=== PATIENT | male | born 1995 | race African-American/Black ===

== ENCOUNTER 2019-07-27 08:03 | Emergency (ER) | payer MEDICAID ==
[~2019-07-27] VITALS: Ht 182.9 cm; Wt 77.1 kg
--- NOTE | 2019-07-27 08:10 | NUR ---
ED Nurse Note: Patient BIBA RA 58 c/o generalized shaking that started last night. Patient is intermittently shivering. Patient AxO x 4, has flat affect, responds to questions after a short delay and speaks in a low mumble. Patient on the cardiac exercise specialist. No s/s of acute distress. VSS. Dr. Matias at the bedside speaking to patient.
--- NOTE | 2019-07-27 08:10 | NUR ---
Note undone in EDM - 07/27/19 at 0822 by [facility] ED Nurse Note: Patient walked into ED c/o generalized shaking that started last night. Patient is intermittently shivering. Patient AxO x 4, has flat affect, responds to questions after a short delay and speaks in a low mumble. Patient on the burrer marker axle. No s/s of acute distress. VSS. Dr. Matias at the bedside speaking to patient.
[2019-07-27 08:12] VITALS: BP 140/79
[2019-07-27] MEDS ORDERED: LORazepam 1mg tab ORAL ONE (08:15)
--- NOTE | 2019-07-27 08:16 | Emergency Room Report ---
History of Present Illness General Chief Complaint: General Complaint Source: EMS Present Illness HPI 23-year-old male history of schizophrenia, polysubstance abuse presented for feelings of shakiness. She admits to using methamphetamine 2 days ago. States he has been off his psychiatric medications but the past week. He states he normally takes Zyprexa but his dose is unknown. He denies any suicidal or homicidal ideation. No nausea vomiting or shortness of breath. Presented by EMS from the street. Allergies: Coded Allergies: No Known Allergies (Unverified , 07/27/19) Patient History Past Medical History: see triage record Social History: Reports: drug use Reviewed Nursing Documentation: PMH: Agreed; PSxH: Agreed Nursing Documentation-PMH Past Medical History: No Stated History Review of Systems All Other Systems: negative except mentioned in HPI Physical Exam Vital Signs Date Time Temp Pulse Resp B/P (MAP) Pulse Ox O2 Delivery O2 Flow Rate FiO2 07/27/19 07:56 97.3 90 18 180/100 (126) 96 Room Air Sp02 EP Interpretation: reviewed, normal General Appearance: well appearing, no apparent distress, other - Mild tremor noted Head: normocephalic, atraumatic Eyes: bilateral eye PERRL, bilateral eye EOMI ENT: hearing grossly normal, moist mucus membranes Neck: full range of motion, supple Respiratory: lungs clear, normal breath sounds, no rhonchi, no respiratory distress, no retraction, no wheezing Cardiovascular #1: normal peripheral pulses, regular rate, rhythm, no murmur Gastrointestinal: non tender, soft, non-distended, no guarding Neurologic: alert, oriented x3, no focal defects Psychiatric: no suicidal/homicidal ideation, no delusions, anxious Skin: normal color, warm/dry Medical Decision Making ER Course Differential diagnosis included but not limited to substance abuse, anxiety reaction, methamphetamine abuse to name a few. On exam patient in no acute distress mildly tremulous. Admitted using methamphetamine 2 days ago. I suspect this is the cause of his anxiety and mild tremor. 1 mg of Ativan given p.o. in the ER. After 1 mg of Ativan patient improved, tremor resolved, feeling improved. I will provide prescription for patient to restart his oral Zyprexa.,. Last Vital Signs Date Time Temp Pulse Resp B/P (MAP) Pulse Ox O2 Delivery O2 Flow Rate FiO2 07/27/19 07:56 97.3 90 18 180/100 (126) 96 Room Air Status: improved Disposition: HOME, SELF-CARE Condition: Stable Scripts Olanzapine (Zyprexa Zydis) 10 Mg Tab.rapdis 10 MG ORAL DAILY, #30 TAB 0 Refills Prov: Pedro Matias M.D. 07/27/19 Additional Instructions: Patient is instructed to follow-up with her primary care doctor, primary care clinic or [facility] in 1 to 2 days. Patient instructed to return for any worsening symptoms or concerns. Please note that the documentation in this note was used with [employer] technology. Pleae be advised that this may lead to erroneous text due to misinterpretation by the dictation software Pedro Matias M.D. Jul 27, 2019 08:16
[2019-07-27] MEDS ORDERED: ZYPREXA ZYDIS10 MG ORAL (09:03)
--- NOTE | 2019-07-27 09:05 | NUR ---
ED Nurse Note: Patient tolerating medication well, patient is resting in bed and shaking subsided.
--- NOTE | 2019-07-27 09:10 | NUR ---
ED Nurse Note: Patient drowsy when talking. Per Dr. Matias, okay to let patient stay in bed to monitor.
--- NOTE | 2019-07-27 10:56 | NUR ---
ED Nurse Note: Patient awake and alert, patient able to walk with steady gait. Patient able to put on his shoes by himself and walk to the bathroom unnasisted. Patient AxO x 4, not shaking anmore. No s/s of acute distress, patient no longer drowsy.
[2019-07-27 10:58] VITALS: BP 139/81
--- NOTE | 2019-07-27 10:58 | NUR ---
ER DISCHARGE NOTE: Patient cleared for discharge by Dr. Matias. Patient AxO x 4, verbalized understanding of DC instructions. ID band removed, patient walks with steady gait and has all belongings.
== END 2019-07-27 10:58 | disposition home or self-care (01) ==
LOC: EDBD 08:03 → EMR 08:44
DX: R25.1 Tremor, unspecified (principal); F20.9 Schizophrenia, unspecified; F15.90 Other stimulant use, unspecified, uncomplicated; Z79.899 Other long term (current) drug therapy
CPT/HCPCS: 99282